=== PATIENT | male | born 1945 | race Caucasian/White ===

== ENCOUNTER 2016-10-21 13:46 | Emergency (ER) | payer MEDICARE, OTHER ==
[~2016-10-21] VITALS: Ht 177.8 cm; Wt 81.0 kg
[~2016-10-21 13:46] MED LIST: AMLODIPINE10 MG PO; AMOXICILLIN500 MG PO; CIPROFLOXACN500 MG PO; GLYBURIDE2.5 M1 PO; MECLIZINE25 MG PO; METFORMIN500 MG PO; PAROXETINE20 MG PO; PRAVASTATIN SOD40 MG OR; PRILOSEC20 MG/CAP PO; ZOFRAN ODT8 MG SL
[2016-10-21 14:39] LABS: HEMATOCRIT 37.1 % (39.0-50.0); HEMOGLOBIN 12.8 g/dl (14.0-18.0); IMMATURE GRANULOCYTES 0.4 % (0.0-1.0); MEAN CELL VOLUME 87.1 fL CALC (80.0-100.0); MEAN CORPUSCULAR HGB CONC 34.5 g/L CALC (32.0-36.0); NEUT# 12.18 thou/uL (1.82-7.42); RED BLOOD COUNT 4.26 mill/uL (4.70-6.10); RED CELL DISTRI WIDTH 11.9 % (11.5-15.5)
[2016-10-21 14:46] LABS: ALBUMIN 4.1 g/dL (3.2-5.0); ALKALINE PHOSPHATASE 39 u/l (38-126); ANION GAP 11 (6-22 (CALC)); BILIRUBIN, TOTAL 0.8 mg/dL (0.0-1.4); BUN 13 mg/dL (8-23); BUN/CREATININE RATIO 13 (12-20 (CALC)); CALCIUM 8.9 mg/dL (8.4-10.2); CARBON DIOXIDE 28 mmol/l (22-30); CHLORIDE 100 mmol/l (95-108); GFR > 60 ML/MIN (>=60 (CALC)); GFR FOR AFR.AMER. > 60 ML/MIN (>=60 (CALC)); GLUCOSE 106 mg/dL (82-115); POTASSIUM 3.3 mmol/l (3.5-5.1); SGOT/AST 19 u/l (19-48); SGPT/ALT 34 u/l (11-66); SODIUM 136 mmol/l (137-146); TOTAL PROTEIN 6.7 g/dL (6.3-8.2)
[2016-10-21 14:47] LABS: URINE BILIRUBIN - DIPSTICK NEGATIVE (NEGATIVE); URINE BLOOD DIPSTICK TRACE-INTACT (NEGATIVE); URINE CLARITY CLOUDY; URINE COLOR YELLOW; URINE GLUCOSE - DIPSTICK 100 mg/dL (NEGATIVE); URINE KETONE NEGATIVE (NEGATIVE); URINE NITRITE - DIPSTICK NEGATIVE (Negative); URINE PH 6.5 (4.5-8.0); URINE PROTEIN - DIPSTICK NEGATIVE (NEG-TRACE); URINE SPECIFIC GRAVITY <=1.005; URINE UROBILINOGEN - DIPSTICK 0.2 E.U./dL (0.2)
[2016-10-21 14:53] LABS: URINE LEUK ESTERASE SMALL (NEGATIVE)
[2016-10-21 14:55] LABS: URINE BACTERIA FEW hpf; URINE RBC 0-2 RBC/hpf (0-5); URINE SQUAMOUS EPITHELIAL CELL FEW EPI/hpf (0-FEW)
[2016-10-21 14:58] LABS: MYOGLOBIN 32 ng/mL (0 - 121)
[2016-10-21 15:26] LABS: INFLUENZA A NONE DETECTED (NONE DETECT); INFLUENZA B NONE DETECTED (NONE DETECT)
[2016-10-21] MEDS ORDERED: AMOXICILLIN500 MG PO (16:31)
[2016-10-21 16:34] VITALS: BP 141/68
== END 2016-10-21 16:45 | disposition home or self-care (01) ==
LOC: ED 13:46
PROVIDERS: Emergency Medicine
DX: N39.0 Urinary tract infection, site not specified (principal); J02.0 Streptococcal pharyngitis; R50.9 Fever, unspecified; R06.02 Shortness of breath; R35.0 Frequency of micturition

== ENCOUNTER 2016-11-28 21:38 | Emergency (ER) | payer MEDICARE, OTHER ==
[~2016-11-28] VITALS: Ht 177.8 cm; Wt 86.6 kg
[2016-11-28] MEDS ORDERED: GLIMEPIRIDE2 MG PO (22:07)
[2016-11-28] MEDS ORDERED: PIOGLITAZONE HC15 MG PO (22:07)
[2016-11-28] MEDS ORDERED: OMEPRAZOLE10 MG PO (22:08)
[2016-11-28] MEDS ORDERED: BENAZEPRIL10 MG PO (22:09)
[2016-11-28 23:14] LABS: HEMATOCRIT 40.3 % (39.0-50.0); HEMOGLOBIN 13.4 g/dl (14.0-18.0); IMMATURE GRANULOCYTES 4.2 % (0.0-1.0); MEAN CELL VOLUME 88.4 fL CALC (80.0-100.0); MEAN CORPUSCULAR HGB 29.4 pG CALC (26.0-32.0); MEAN CORPUSCULAR HGB CONC 33.3 g/L CALC (32.0-36.0); NEUT# 4.27 thou/uL (1.82-7.42); RED BLOOD COUNT 4.56 mill/uL (4.70-6.10); RED CELL DISTRI WIDTH 12.2 % (11.5-15.5)
[2016-11-28 23:26] LABS: ALBUMIN 4.4 g/dL (3.2-5.0); ALKALINE PHOSPHATASE 49 u/l (38-126); ANION GAP 16 (6-22 (CALC)); BILIRUBIN, TOTAL 0.5 mg/dL (0.0-1.4); BUN 19 mg/dL (8-23); BUN/CREATININE RATIO 17 (12-20 (CALC)); CALCIUM 9.4 mg/dL (8.4-10.2); CARBON DIOXIDE 28 mmol/l (22-30); CHLORIDE 101 mmol/l (95-108); CREATININE 1.1 mg/dL (0.7-1.3); GFR > 60 ML/MIN (>=60 (CALC)); GFR FOR AFR.AMER. > 60 ML/MIN (>=60 (CALC)); GLUCOSE 203 mg/dL (82-115); POTASSIUM 3.8 mmol/l (3.5-5.1); SGOT/AST 23 u/l (19-48); SGPT/ALT 38 u/l (11-66); SODIUM 141 mmol/l (137-146); TOTAL PROTEIN 7.2 g/dL (6.3-8.2)
[2016-11-28 23:33] LABS: INFLUENZA A NONE DETECTED (NONE DETECT)
[2016-11-28 23:34] LABS: INFLUENZA B NONE DETECTED (NONE DETECT)
[2016-11-28] MEDS ORDERED: AMOXICILLIN500 MG PO (23:42)
[2016-11-28] MEDS ORDERED: ROBITUSSIN AC10 ML PO (23:42)
[2016-11-29 00:21] VITALS: BP 199/95
== END 2016-11-29 00:20 | disposition home or self-care (01) ==
LOC: ED 21:38
PROVIDERS: Emergency Medicine
DX: J02.0 Streptococcal pharyngitis (principal); I10 Essential (primary) hypertension; E11.9 Type 2 diabetes mellitus without complications

== ENCOUNTER 2017-03-28 14:51 | Emergency (ER) | payer MEDICARE, OTHER ==
[~2017-03-28] VITALS: Ht 177.8 cm; Wt 85.0 kg
[~2017-03-28 14:51] MED LIST changes: +BENAZEPRIL10 MG PO; +GLIMEPIRIDE2 MG PO; +OMEPRAZOLE10 MG PO; +PIOGLITAZONE HC15 MG PO; +ROBITUSSIN AC10 ML PO
[2017-03-28 16:11] VITALS: BP 138/77
== END 2017-03-28 16:24 | disposition home or self-care (01) ==
LOC: ED 14:51
PROC: 0HQFXZZ Repair Right Hand Skin, External Approach (ICD-10-PCS; principal; 2017-03-28)
DX: S61.246A Puncture wound with foreign body of right little finger without damage to nail, initial encounter (principal); I10 Essential (primary) hypertension; E11.9 Type 2 diabetes mellitus without complications; W26.8XXA Contact with other sharp object(s), not elsewhere classified, initial encounter; W45.8XXA Other foreign body or object entering through skin, initial encounter; Y93.89 Activity, other specified

== ENCOUNTER 2018-11-19 23:59 | Emergency (ER) | payer MEDICARE, OTHER ==
[~2018-11-19] VITALS: Ht 177.8 cm; Wt 84.1 kg
[~2018-11-19 23:59] MED LIST changes: -BENAZEPRIL10 MG PO; +BENAZEPRIL40 M1 PO; -PRAVASTATIN SOD40 MG OR; +PRAVASTATIN80 MG PO
[2018-11-20] MEDS ORDERED: ACYCLOVIR200 MG PO (00:15)
[2018-11-20] MEDS ORDERED: HYDROCHLOROT12.5 M1 PO (00:16)
[2018-11-20] MEDS ORDERED: L-LYSINE1000 M1 PO (00:18)
[2018-11-20] MEDS ORDERED: ASPIRIN CHEWABL81 MG PO (00:19)
[2018-11-20 00:44] LABS: HEMATOCRIT 37.2 % (39.0-50.0); HEMOGLOBIN 12.4 g/dl (14.0-18.0); IMMATURE GRANULOCYTES 0.5 % (0.0-5.0); MEAN CELL VOLUME 87.9 fL CALC (80.0-100.0); MEAN CORPUSCULAR HGB 29.3 pG CALC (26.0-32.0); MEAN CORPUSCULAR HGB CONC 33.3 g/L CALC (32.0-36.0); NEUT# 4.53 thou/uL (1.82-7.42); RED BLOOD COUNT 4.23 mill/uL (4.70-6.10); RED CELL DISTRI WIDTH 12.5 % (11.5-15.5); URINE BILIRUBIN - DIPSTICK NEGATIVE (NEGATIVE); URINE BLOOD DIPSTICK NEGATIVE (NEGATIVE); URINE COLOR YELLOW; URINE GLUCOSE - DIPSTICK NEGATIVE (NEGATIVE); URINE KETONE NEGATIVE (NEGATIVE); URINE LEUK ESTERASE NEGATIVE (NEGATIVE); URINE NITRITE - DIPSTICK NEGATIVE (Negative); URINE PROTEIN - DIPSTICK NEGATIVE (NEG-TRACE); URINE SPECIFIC GRAVITY 1.015; URINE UROBILINOGEN - DIPSTICK 0.2 E.U./dL (0.2)
[2018-11-20 01:01] LABS: ALBUMIN 4.1 g/dL (3.2-5.0); ALKALINE PHOSPHATASE 43 u/l (38-126); ANION GAP 13 (6-22 (CALC)); BILIRUBIN, TOTAL 0.4 mg/dL (0.0-1.4); BUN 24 mg/dL (8-23); BUN/CREATININE RATIO 18 (12-20 (CALC)); CARBON DIOXIDE 30 mmol/l (22-30); CHLORIDE 101 mmol/l (95-108); CREATININE 1.3 mg/dL (0.7-1.3); GFR 54 ML/MIN (>=60 (CALC)); GFR FOR AFR.AMER. > 60 ML/MIN (>=60 (CALC)); POTASSIUM 3.4 mmol/l (3.5-5.1); SGOT/AST 18 u/l (19-48); SODIUM 140 mmol/l (137-146); TOTAL PROTEIN 6.7 g/dL (6.3-8.2)
[2018-11-20 01:13] LABS: MYOGLOBIN 44 ng/mL (0 - 121)
[2018-11-20 03:10] VITALS: BP 120/74
== END 2018-11-20 03:10 | disposition short-term general hospital (02) ==
LOC: ED 23:59
PROVIDERS: Emergency Medicine
DX: G45.9 Transient cerebral ischemic attack, unspecified (principal); I10 Essential (primary) hypertension; E11.9 Type 2 diabetes mellitus without complications

== ENCOUNTER 2018-11-28 07:55 | Emergency (ER) | payer MEDICARE, OTHER ==
[~2018-11-28] VITALS: Ht 177.8 cm; Wt 90.0 kg
[~2018-11-28 07:55] MED LIST changes: +ACYCLOVIR200 MG PO; +ASPIRIN CHEWABL81 MG PO; +HYDROCHLOROT12.5 M1 PO; +L-LYSINE1000 M1 PO
[2018-11-28 08:21] LABS: HEMATOCRIT 40.5 % (39.0-50.0); HEMOGLOBIN 13.6 g/dl (14.0-18.0); IMMATURE GRANULOCYTES 0.5 % (0.0-5.0); MEAN CELL VOLUME 86.7 fL CALC (80.0-100.0); MEAN CORPUSCULAR HGB 29.1 pG CALC (26.0-32.0); MEAN CORPUSCULAR HGB CONC 33.6 g/L CALC (32.0-36.0); NEUT# 6.12 thou/uL (1.82-7.42); RED BLOOD COUNT 4.67 mill/uL (4.70-6.10); RED CELL DISTRI WIDTH 12.3 % (11.5-15.5)
[2018-11-28 08:37] LABS: ACT PARTIAL THROMBO TIME 26.4 SECONDS (20.0-32.5); PROTHROMBIN TIME 10.4 SECONDS (9.0-12.5)
[2018-11-28 08:40] LABS: ALBUMIN 4.5 g/dL (3.2-5.0); ALKALINE PHOSPHATASE 50 u/l (38-126); ANION GAP 14 (6-22 (CALC)); BILIRUBIN, TOTAL 0.6 mg/dL (0.0-1.4); BUN 17 mg/dL (8-23); BUN/CREATININE RATIO 15 (12-20 (CALC)); CARBON DIOXIDE 29 mmol/l (22-30); CHLORIDE 101 mmol/l (95-108); CREATININE 1.1 mg/dL (0.7-1.3); GFR > 60 ML/MIN (>=60 (CALC)); GFR FOR AFR.AMER. > 60 ML/MIN (>=60 (CALC)); POTASSIUM 3.8 mmol/l (3.5-5.1); SGOT/AST 20 u/l (19-48); SODIUM 140 mmol/l (137-146); TOTAL PROTEIN 7.2 g/dL (6.3-8.2)
[2018-11-28 09:48] LABS: URINE BILIRUBIN - DIPSTICK NEGATIVE (NEGATIVE); URINE BLOOD DIPSTICK NEGATIVE (NEGATIVE); URINE COLOR YELLOW; URINE GLUCOSE - DIPSTICK NEGATIVE (NEGATIVE); URINE KETONE NEGATIVE (NEGATIVE); URINE LEUK ESTERASE NEGATIVE (NEGATIVE); URINE NITRITE - DIPSTICK NEGATIVE (Negative); URINE PROTEIN - DIPSTICK NEGATIVE (NEG-TRACE); URINE SPECIFIC GRAVITY <=1.005; URINE UROBILINOGEN - DIPSTICK 0.2 E.U./dL (0.2)
[2018-11-28 13:31] VITALS: BP 156/85
== END 2018-11-28 13:27 | disposition short-term general hospital (02) ==
LOC: ED 07:55
PROVIDERS: Family Medicine
DX: G45.9 Transient cerebral ischemic attack, unspecified (principal); R91.8 Other nonspecific abnormal finding of lung field; E11.9 Type 2 diabetes mellitus without complications; I10 Essential (primary) hypertension; Z86.73 Personal history of transient ischemic attack (TIA), and cerebral infarction without residual deficits; Z79.84 Long term (current) use of oral hypoglycemic drugs
CPT/HCPCS: Q9967